=== PATIENT | male | born 1995 | race Caucasian/White ===

== ENCOUNTER 2023-01-05 10:57 | Emergency (ER) | payer SELFPAY ==
[~2023-01-05] VITALS: Ht 182.9 cm; Wt 117.9 kg
[2023-01-05 12:00] VITALS: BP 162/75; O2SAT 97
== END 2023-01-05 12:03 | disposition home or self-care (01) ==
LOC: ER 11:02
DX: S93.401A Sprain of unspecified ligament of right ankle, initial encounter (principal); X50.1XXA Overexertion from prolonged static or awkward postures, initial encounter; Y93.89 Activity, other specified; Y92.89 Other specified places as the place of occurrence of the external cause; Y99.8 Other external cause status
CPT/HCPCS: 73610; 73630; A4663